=== PATIENT | female | born 1990 | race Caucasian/White ===

== ENCOUNTER 2017-04-12 18:49 | Emergency (ER) | payer OTHER ==
[~2017-04-12] VITALS: Ht 165.1 cm; Wt 86.2 kg
[~2017-04-12 18:49] MED LIST: NASONEX17 GM NASB
--- NOTE | 2017-04-12 20:55 | ED HEADACHE COMPLAINT ---
History of Present Illness General Chief Complaint: Headache Stated Complaint: BIRCH Source: patient Exam Limitations: no limitations Vital Signs & Intake/Output Vital Signs & Intake/Output Vital Signs Date Time Temp Pulse Resp B/P B/P Pulse O2 O2 Flow FiO2 Mean Ox Delivery Rate 04/13 0007 92/66 04/12 2349 80 88/56 04/12 2332 98.1 82 20 88/56 97 04/12 2103 98 118/70 04/12 1854 96.8 82 15 126/84 100 Room Air Room Air ED Intake and Output 04/13 0000 04/12 1200 Intake Total 0 Output Total Balance 0 Intake, Oral 0 Patient 190 lb Weight Weight Reported by Patient Measurement Method Allergies Coded Allergies: No Known Allergies (04/12/17) Reconcile Medications Butalb/Acetaminophen/Caffeine (Esgic Capsule) 50 MG-325 MG-40 MG CAPSULE 1 CAP PO Q6H PRN HEADACHE Ciprofloxacin HCl (Cipro) 500 MG TABLET 1 TAB PO BID UTI Metoclopramide HCl (Reglan) 10 MG TABLET 1 TAB PO 4 TIMES/DAY PRN NAUSEA/ HEADACHE 30 minutes before meals and bedtime Mometasone Furoate (Nasonex) 50 MCG SPRAY.PUMP 2 SPRAY NASB DAILY sinuses Triage Note: PT TO ED FOR C/C OF HEADACHE THAT STARTED 2 DAYS AGO. PT TOOK MOTRIN WITHOUT RELIEF TODAY. +BLURRY VISION AND NAUSEA WITHOUT VOMITING. ALL NEUROS INTACT IN TRIAGE. Triage Nurses Notes Reviewed? yes Onset: Abrupt Duration: day(s): (3), constant, continues in ED Timing: single episode today Quality/Severity: moderate, pressure Severity Numbers: 7 Head Injury Location: frontal No Modifying Factors: none Associated Symptoms: nausea/vomiting LMP (ages 10-50): unknown : No Patient currently breastfeeds: No HPI: 20 60T Luci no past medical history of cancer elevation or headache. She states that she first noticed pain about 3 days ago. The pain is located in the front of her head and does not radiate. She describes it as pressure 7 out of 10. Onset was gradual. This is not the worst headache of her life. She has no previous history of recurrent headaches. She has been taking ibuprofen 400 mg today without any improvement. She reports associated nausea without vomiting. Additionally patient was discharged was diagnosed with a UTI about 2 months ago and thinks that it never went away. She was treated with an unknown antibiotic that she took once a day. She reports SUPRAPUBIC. Pressure frequency urgency. No fever or back pain. No vaginal discharge. She is photophobic. No rashes head trauma chest pain or shortness of breath. (Manolo Ortega) Past History Travel History Traveled to [place] past 21 day No Medical History Any Pertinent Medical History? 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 No (Manolo Ortega) Review of Systems Review of Systems Constitutional: Reports: no symptoms. Eyes: Reports: no symptoms. Ears, Nose, Throat, Mouth: Reports: no symptoms. Respiratory: Reports: no symptoms. Cardiovascular: Reports: no symptoms. Gastrointestinal/Abdominal: Reports: nausea. Genitourinary: Reports: see HPI, dysuria, frequency, urgency. Musculoskeletal: Reports: no symptoms. Skin: Reports: no symptoms. Neurological/Psychological: Reports: headache. Hematologic/Endocrine: Reports: no symptoms. Endocrine: Reports: no symptoms. Immunologic/Allergic: Reports: no symptoms. All Other Systems: Reviewed and Negative (Manolo Ortega) Physical Exam Physical Exam General Appearance: well developed/nourished, no apparent distress, alert, awake Head: atraumatic, normal appearance Eyes: Bilateral: normal appearance, PERRL, EOMI. Ears, Nose, Throat: normal pharynx, normal ENT inspection, hearing grossly normal Neck: normal inspection, supple, full range of motion Respiratory: normal breath sounds, chest non-tender, no respiratory distress, lungs clear Cardiovascular: regular rate/rhythm Gastrointestinal: normal bowel sounds, soft, non-tender, no organomegaly Back: normal inspection, normal range of motion Extremities: normal inspection, normal capillary refill, normal range of motion, no edema Psychiatric: awake, alert, oriented x 3 Cranial Nerves: normal hearing, normal speech, PERRL Coordination/Gait: normal finger to nose, normal gait Motor/Sensory: no motor/sensory deficits Skin: intact, normal color, warm/dry Core Measures Sepsis Present: No Sepsis Focused Exam Completed? No (Terell PONCE,Manolo) Progress Differential Diagnosis: cluster BIRCH, intracranial Hem., migraine BIRCH, musculoskeletal pain, sinusitis, subarach. Hem., tension BIRCH Plan of Care: Orders Procedure Date/time Status Add-on Test (ER Only) 04/12 2314 Active CULTURE,URINE 04/12 2106 Active URINE 04/12 2099 Complete URINALYSIS 04/12 2099 Complete Laboratory Tests 04/12/172106: Urine Color YEL, Urine Clarity HAZY H, Urine pH 6.5, Ur Specific Julian 1.025, Urine Protein NEG, Urine Ketones NEG, Urine Nitrite NEG, Urine Bilirubin NEG, Urine Urobilinogen 1.0, Ur Leukocyte Esterase TRACE H, Ur Microscopic SEDIMENT EXAMINED, Urine RBC 1-3, Urine WBC 1-3 H, Ur Epithelial Cells FEW, Urine Bacteria PACKD H, Urine Hemoglobin NEG, Urine Glucose NEG, Urine Test NEGATIVE Microbiology 04/12 2106 URINE ROUT: Urine Culture - RECD Patient seen and evaluated. She is neurologically intact. CT scan is negative. She is feeling much better after Benadryl and Reglan and Toradol. Urine is showing signs of infection culture centrally covered with Cipro. Prescription given for ESGIC to use for headaches. Follow-up primary care doctor patient is tolerating fluids. Discussed return precautions she is nontoxic-appearing agrees the plan Diagnostic Imaging: Viewed by Me: CT Scan. Discussed w/RAD: CT Scan. Radiology Impression: PATIENT: EDLFINO THOMAS PRESENT AGE: 26 PATIENT ACCOUNT NO: [id number] : 90 LOCATION: [facility] ORDERING PHYSICIAN: Manolo PONCE SERVICE DATE: 04/12/17 EXAM TYPE: CAT - CT HEAD WO IV CONTRAST EXAMINATION: CT HEAD WITHOUT CONTRAST CLINICAL INFORMATION: Headache. COMPARISON: None. TECHNIQUE: Contiguous helical images of the brain were obtained without IV contrast. Multiplanar reconstructions were performed. DLP: 567 mGy-cm. FINDINGS: There are no pathologic extra-axial fluid collections. The lateral, third, fourth ventricles are nondilated and concordant with the appearance of the sulci. There is no evidence for acute intraparenchymal hemorrhage or infarct. There is neither mass nor mass effect. There is no shift of midline structures. The paranasal sinuses and mastoid air cells are clear. There are no osseous lesions. IMPRESSION: No evidence for acute intracranial injury. DICTATED BY: Rafael Edwards MD DATE/TIME DICTATED:04/12/172302 JOB COST ESTIMATOR:DASHA DATE/TIME TRANSCRIBED:04/12/172302 CONFIDENTIAL, DO NOT COPY WITHOUT APPROPRIATE AUTHORIZATION. (Manolo Ortega) Departure Departure Disposition: HOME OR SELF CARE Condition: Stable Clinical Impression Primary Impression: Headache Qualifiers: Headache type: unspecified Headache chronicity pattern: acute headache Intractability: not intractable Qualified Code: R51 - Headache Secondary Impressions: UTI (urinary tract infection) Qualifiers: Urinary tract infection type: acute cystitis Hematuria presence: without hematuria Qualified Code: N30.00 - Acute cystitis without hematuria Referrals: Mack GALINDO,Colton Poe (PCP/Family) Additional Instructions: Rest and drink any fluids. Reglan for nausea and headache. ESGIC as needed for headache. Take ANTIBIOTICS as directed for the full course. Follow up with YOUr primary care doctor. Monitor symptoms returned any concerns. Departure Forms: Customer Survey General Discharge Information Prescriptions: Current Visit Scripts Ciprofloxacin HCl (Cipro) 1 TAB PO BID #14 TAB Butalb/Acetaminophen/Caffeine (Esgic Capsule) 1 CAP PO Q6H PRN HEADACHE #20 CAP Metoclopramide HCl (Reglan) 1 TAB PO 4 TIMES/DAY PRN NAUSEA/HEADACHE #30 TAB 30 minutes before meals and bedtime (Manolo Ortega) PA/CUSTOM BOW MAKER Co-Sign Statement Statement: ED Attending supervision documentation- [] I saw and evaluated the patient. I have also reviewed all the pertinent lab results and diagnostic results. I agree with the findings and the plan of care as documented in the PA's/CUSTOM BOW MAKER's documentation. [X] I have reviewed the ED Record and agree with the PA's/CUSTOM BOW MAKER's documentation. [] Additions or exceptions (if any) to the PAs/CUSTOM BOW MAKER's note and plan are summarized below: [] (Neftaly GALINDO,Spencer Rojas)
--- NOTE | 2017-04-12 23:08 | CT SCAN REPORT ---
EXAMINATION: CT HEAD WITHOUT CONTRAST CLINICAL INFORMATION: Headache. COMPARISON: None. TECHNIQUE: Contiguous helical images of the brain were obtained without IV contrast. Multiplanar reconstructions were performed. DLP: 567 mGy-cm. FINDINGS: There are no pathologic extra-axial fluid collections. The lateral, third, fourth ventricles are nondilated and concordant with the appearance of the sulci. There is no evidence for acute intraparenchymal hemorrhage or infarct. There is neither mass nor mass effect. There is no shift of midline structures. The paranasal sinuses and mastoid air cells are clear. There are no osseous lesions. IMPRESSION: No evidence for acute intracranial injury.
[2017-04-12] MEDS ORDERED: ESGIC CAPSULE1 EACH PO (23:20)
[2017-04-12] MEDS ORDERED: CIPRO500 M1 PO (23:20)
[2017-04-12] MEDS ORDERED: REGLAN10 M1 PO (23:21)
[2017-04-13 00:07] VITALS: BP 92/66
== END 2017-04-13 00:07 ==
LOC: ERH 18:49
DX: R51 Headache (principal); N39.0 Urinary tract infection, site not specified
CPT/HCPCS: 81001; 81025; 87086; 96372; J1885

== ENCOUNTER 2017-08-10 22:47 | Emergency (ER) | payer OTHER ==
[~2017-08-10] VITALS: Ht 165.1 cm; Wt 85.3 kg
[~2017-08-10 22:47] MED LIST changes: +CIPRO500 M1 PO; +ESGIC CAPSULE1 EACH PO; +REGLAN10 M1 PO
[2017-08-11 00:19] LABS: ABSOLUTE BASOPHIL COUNT 0 /CUMM (0.0-0.2); ABSOLUTE EOSINOPHIL COUNT 0.2 /CUMM (0.0-0.7); ABSOLUTE GRANULOCYTE CT 3.5 /CUMM (1.4-6.5); ABSOLUTE LYMPH COUNT 2.3 /CUMM (1.2-3.4); ABSOLUTE MONOCYTE COUNT 0.5 /CUMM (0.10-0.60); BASOPHIL % 0.3 % (0.0-2.0); EOSINOPHIL % 3.2 % (0-5); GRANULOCYTE % 53.7 % (42.2-75.2); HEMATOCRIT 36.5 % (37-47); MEAN CORPUSCULAR HGB 30.9 PG (27.0-31.0); MEAN CORPUSCULAR HGB CONC 34.4 G/DL (33.0-37.0); MEAN CORPUSCULAR VOLUME 89.7 FL (81.0-99.0); MEAN PLATELET VOLUME 6.9 FL (7.4-10.4); PLATELET COUNT 232 /CUMM (130-400); RBC DISTRIBUTION WIDTH 12.7 % (11.5-14.5); RED BLOOD CELL CT 4.07 /CUMM (4.20-5.40); WHITE BLOOD CELL COUNT 6.6 /CUMM (4.8-10.8)
--- NOTE | 2017-08-11 00:45 | ED GI/GU/ABDOMINAL COMPLAINT ---
History of Present Illness General Chief Complaint: General Adult Stated Complaint: "SHARP STOMACH PAIN" Source: patient Exam Limitations: no limitations Allergies Coded Allergies: No Known Allergies (08/10/17) Reconcile Medications Butalb/Acetaminophen/Caffeine (Esgic Capsule) 50 MG-325 MG-40 MG CAPSULE 1 CAP PO Q6H PRN HEADACHE Ciprofloxacin HCl (Cipro) 500 MG TABLET 1 TAB PO BID UTI Metoclopramide HCl (Reglan) 10 MG TABLET 1 TAB PO 4 TIMES/DAY PRN NAUSEA/ HEADACHE 30 minutes before meals and bedtime Mometasone Furoate (Nasonex) 50 MCG SPRAY.PUMP 2 SPRAY NASB DAILY sinuses Ranitidine HCl (Zantac) 300 MG TABLET 1 TAB PO QPM stomache acid Triage Note: PT TO TRIAGE WITH EPIGASTRIC PAIN STARTING EARLY TODAY. PT DENIES FEVERS. DENIES N/V/D. PT STATES PAIN WRAPS AROUND TO HER BACK. PAIN INCREASES WEHEN SHE LEANS OVER Triage Nurses Notes Reviewed? yes ? N Is pt currently ? No Onset: Abrupt Duration: hour(s):, constant Timing: single episode today Quality/Severity: cramping, moderate Location: epigastric Radiation: no radiation HPI: 27-year-old female comes into the emergency room with cramping epigastric pain has been going on since this morning. Denies any vomiting. Denies any fever chills. Denies any urinary symptoms. Denies any vaginal discharge. She denies any prior abdominal surgeries. She comes in for further evaluation. (Jorge L PONCE,Lupillo) Vital Signs & Intake/Output Vital Signs & Intake/Output Vital Signs Date Time Temp Pulse Resp B/P B/P Pulse O2 O2 Flow FiO2 Mean Ox Delivery Rate 08/11 0215 98.0 84 18 115/66 99 Room Air 08/11 0113 98.0 89 18 109/55 99 Room Air 08/11 0050 100 Room Air 08/10 2255 98.2 103 16 124/81 98 Room Air Room Air ED Intake and Output 08/11 0000 08/10 1200 Intake Total Output Total Balance Patient 188 lb Weight Weight Reported by Patient Measurement Method (Ally GALINDO,Carlos Smith) Past History Travel History Traveled to [place] past 21 day No Medical History Any Pertinent Medical History? 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 No (Lupillo Bosch) Review of Systems Review of Systems Constitutional: Reports: no symptoms. EENTM: Reports: no symptoms. Respiratory: Reports: no symptoms. Cardiovascular: Reports: no symptoms. GI: Reports: see HPI. Genitourinary: Reports: no symptoms. Musculoskeletal: Reports: no symptoms. Skin: Reports: no symptoms. Neurological/Psychological: Reports: no symptoms. Hematologic/Endocrine: Reports: no symptoms. Immunologic/Allergic: Reports: no symptoms. All Other Systems: Reviewed and Negative (Lupillo Bosch) Physical Exam Physical Exam General Appearance: well developed/nourished, alert, mild distress Head: atraumatic Eyes: Bilateral: normal appearance. Ears, Nose, Throat, Mouth: dental injury, moist mucous membrane Neck: normal inspection Respiratory: normal breath sounds, no respiratory distress Cardiovascular: regular rate/rhythm Gastrointestinal: soft, tenderness, EPIGASTRIC Back: normal inspection Extremities: normal range of motion Neurologic/Psych: awake, alert, oriented x 3 (Lupillo Bosch) Core Measures ACS in differential dx? No Sepsis Present: No Sepsis Focused Exam Completed? No (Carlos Canales MD) Progress Differential Diagnosis: diverticulitis, gastritis, ischemic bowel, pancreatitis, peptic ulcer, PUD/GERD, SBO Diagnostic Imaging: Viewed by Me: CT Scan. Discussed w/RAD: CT Scan. Initial ED EKG: none Hand-Off Endorsed To: Carlos Canales MD Endorsed Time: 46 Pending: CT (Lupillo Bosch) Plan of Care: Orders Procedure Date/time Status URINE 08/10 2336 Complete URINALYSIS 08/10 2336 Complete LIPASE 08/10 2336 Complete COMPREHENSIVE METABOLIC PANEL 08/10 2336 Complete CBC WITHOUT DIFFERENTIAL 08/10 2336 Complete AMYLASE 08/10 2336 Complete Laboratory Tests 08/11/17 0010: Urinalysis MOD H, Urine Color YEL, Urine Clarity HAZY H, Urine pH 6.0, Ur Specific [place] 1.025, Urine Protein NEG, Urine Ketones NEG, Urine Nitrite NEG, Urine Bilirubin NEG, Urine Urobilinogen 0.2, Ur Leukocyte Esterase TRACE H, Ur Microscopic SEDIMENT EXAMINED, Urine WBC 1-3 H, Ur Epithelial Cells MOD H, Urine Bacteria MOD H, Urine Hemoglobin NEG, Urine Glucose NEG, Urine Test NEGATIVE 08/10/17 9687: Anion Gap 11, Estimated GFR > 60, BUN/Creatinine Ratio 30.0 H, Glucose 113 H, Calcium 9.3, Total Bilirubin 0.4, AST 12 L, ALT 25, Alkaline Phosphatase 60, Total Protein 6.8, Albumin 4.2, Globulin 2.6, Albumin/Globulin Ratio 1.6, Amylase 45, Lipase 277, CBC w Diff NO MAN DIFF REQ, RBC 4.07 L, MCV 89.7, MCH 30.9, MCHC 34.4, RDW 12.7, MPV 6.9 L, Gran % 53.7, Lymphocytes % 35.4, Monocytes % 7.4, Eosinophils % 3.2, Basophils % 0.3, Absolute Granulocytes 3.5, Absolute Lymphocytes 2.3, Absolute Monocytes 0.5, Absolute Eosinophils 0.2, Absolute Basophils 0 Radiology Impression: PATIENT: DELFINO THOMAS PRESENT AGE: 27 PATIENT ACCOUNT NO: [id number] : 90 LOCATION: [facility] ORDERING PHYSICIAN: Lupillo PONCE SERVICE DATE: 08/10/17 EXAM TYPE: CAT - CT ABD & PELVIS W IV CONTRAST EXAMINATION: CT ABDOMEN AND PELVIS WITH CONTRAST CLINICAL INFORMATION: Epigastric pain. COMPARISON: CT abdomen pelvis February 19, 2013 TECHNIQUE: Multidetector volumetric imaging was performed of the abdomen and pelvis following IV administration of 95 mL of Optiray 320 intravenous contrast. Sagittal and coronal reformatted images were obtained on the technologist's workstation. DLP: 614.78 mGy-cm FINDINGS: LUNG BASES: The visualized lung bases are unremarkable. LIVER, GALLBLADDER, AND BILIARY TREE: The liver is normal in size, shape, and attenuation. No focal hepatic lesion or biliary ductal dilatation is present. The gallbladder is unremarkable with no evidence of radiopaque gallstones, gallbladder wall thickening, or obvious pericholecystic inflammatory changes. PANCREAS: Unremarkable. SPLEEN: Unremarkable. ADRENAL GLANDS: Unremarkable. KIDNEYS AND URETERS: The kidneys are normal in size, shape, and attenuation. No hydronephrosis, hydroureter, or calculi seen. No perinephric stranding. BLADDER: Unremarkable. GASTROINTESTINAL TRACT: Moderate to large-volume of stool throughout the colon. No acute change of the bowel. No bowel obstruction. No bowel wall thickening or edema. The appendix is normal. The small bowel loops are unremarkable. ABDOMINAL WALL: No significant hernia is appreciated. LYMPH NODES: Normal. VASCULAR: Unremarkable. PELVIC VISCERA: Unremarkable. OSSEOUS STRUCTURES: Unremarkable. IMPRESSION: No significant abnormality. DICTATED BY: Colton Roche MD DATE/TIME DICTATED:142 TIRE MANAGER:DASHA DATE/TIME TRANSCRIBED:08/11/17142 CONFIDENTIAL, DO NOT COPY WITHOUT APPROPRIATE AUTHORIZATION. 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 I have updated aferdita on her test results. Fortunately she is pain free at this time. I have asked that she follow up with her primary care physician for reevaluation and possible referral to a GI specialist for peptic ulcer disease or a surgeon for biliary colic. (Ally GALINDO,Carlos Smith) Departure Departure Condition: Stable Referrals: Memo Hemphill DO (PCP/Family) Departure Forms: Customer Survey General Discharge Information (Lupillo Bosch) Departure Disposition: HOME OR SELF CARE Clinical Impression Primary Impression: Nonspecific abdominal pain Additional Instructions: Zantac as prescribed for control of stomach acid. Follow-up with your primary care physician for reevaluation and possible referral to a GI specialist for peptic ulcer disease or for referral to a general surgeon for the possibility of gallbladder surgery. Elliott low-fat diet as discussed. Return if any concerns or sudden worsening. Please note that there might be incidental findings in your evaluation that are unrelated to the current emergency department visit. Please notify your primary care doctor about this emergency department visit in order to obtain and review all of the testing performed so that these incidental findings can be monitored as needed. If you had an x-ray performed, please understand that some fractures may not be seen on the initial set of x-rays. If your symptoms persist you might need a repeat set of x-rays to check for such a fracture. If you had a laceration evaluated, please understand that foreign bodies such as glass or wood may not be visible to the naked eye or on plain x-rays. If the wound becomes red, swollen, increasingly more painful or if there is any drainage from the wound, please have it reevaluated by a physician for the possibility of a retained foreign body. If you're unable to follow up as outlined in the discharge instructions please return to the emergency department. Thank you for choosing the [facility] Emergency Department for your care. It was a pleasure to serve you today. Carlos Canales M.D. [facility] Prescriptions: Current Visit Scripts Ranitidine HCl (Zantac) 1 TAB PO QPM #15 TAB (Ally GALINDO,Carlos Smith)
--- NOTE | 2017-08-11 01:53 | CT SCAN REPORT ---
EXAMINATION: CT ABDOMEN AND PELVIS WITH CONTRAST CLINICAL INFORMATION: Epigastric pain. COMPARISON: CT abdomen pelvis February 19, 2013 TECHNIQUE: Multidetector volumetric imaging was performed of the abdomen and pelvis following IV administration of 95 mL of Optiray 320 intravenous contrast. Sagittal and coronal reformatted images were obtained on the technologist's workstation. DLP: 614.78 mGy-cm FINDINGS: LUNG BASES: The visualized lung bases are unremarkable. LIVER, GALLBLADDER, AND BILIARY TREE: The liver is normal in size, shape, and attenuation. No focal hepatic lesion or biliary ductal dilatation is present. The gallbladder is unremarkable with no evidence of radiopaque gallstones, gallbladder wall thickening, or obvious pericholecystic inflammatory changes. PANCREAS: Unremarkable. SPLEEN: Unremarkable. ADRENAL GLANDS: Unremarkable. KIDNEYS AND URETERS: The kidneys are normal in size, shape, and attenuation. No hydronephrosis, hydroureter, or calculi seen. No perinephric stranding. BLADDER: Unremarkable. GASTROINTESTINAL TRACT: Moderate to large-volume of stool throughout the colon. No acute change of the bowel. No bowel obstruction. No bowel wall thickening or edema. The appendix is normal. The small bowel loops are unremarkable. ABDOMINAL WALL: No significant hernia is appreciated. LYMPH NODES: Normal. VASCULAR: Unremarkable. PELVIC VISCERA: Unremarkable. OSSEOUS STRUCTURES: Unremarkable. IMPRESSION: No significant abnormality.
[2017-08-11] MEDS ORDERED: ZANTAC300 MG PO (02:14)
[2017-08-11 02:15] VITALS: BP 115/66
== END 2017-08-11 02:24 ==
LOC: ERH 22:47
PROVIDERS: Physician Assistant Medical
DX: R10.13 Epigastric pain (principal)
CPT/HCPCS: 74177; 81001; 81025; 96374; 96375; J2405

== ENCOUNTER → 2017-12-15 | Emergency (ER) | payer OTHER ==
[~2017-12-15] VITALS: Ht 165.1 cm; Wt 89.4 kg
[~2017-12-15] MED LIST changes: +IBUPROFEN800 M1 PO; +ZANTAC300 MG PO; +ZOFRAN ODT4 M1 SL
[2017-12-15 19:02] LABS: ABSOLUTE BASOPHIL COUNT 0 /CUMM (0.0-0.2); ABSOLUTE EOSINOPHIL COUNT 0.1 /CUMM (0.0-0.7); ABSOLUTE GRANULOCYTE CT 4.9 /CUMM (1.4-6.5); ABSOLUTE LYMPH COUNT 1.9 /CUMM (1.2-3.4); ABSOLUTE MONOCYTE COUNT 0.5 /CUMM (0.10-0.60); BASOPHIL % 0.2 % (0.0-2.0); EOSINOPHIL % 1.6 % (0-5); GRANULOCYTE % 66.6 % (42.2-75.2); HEMATOCRIT 39.3 % (37-47); MEAN CORPUSCULAR HGB 30.9 PG (27.0-31.0); MEAN CORPUSCULAR HGB CONC 34.3 G/DL (33.0-37.0); MEAN CORPUSCULAR VOLUME 90.3 FL (81.0-99.0); MEAN PLATELET VOLUME 7.6 FL (7.4-10.4); PLATELET COUNT 275 /CUMM (130-400); RBC DISTRIBUTION WIDTH 12.8 % (11.5-14.5); RED BLOOD CELL CT 4.36 /CUMM (4.20-5.40); WHITE BLOOD CELL COUNT 7.4 /CUMM (4.8-10.8)
--- NOTE | 2017-12-15 21:25 | CT SCAN REPORT ---
EXAMINATION: CT ABDOMEN AND PELVIS WITH CONTRAST CLINICAL INFORMATION: Right lower quadrant and right flank pain COMPARISON: 09/10/2017 TECHNIQUE: Multidetector volumetric imaging was performed of the abdomen and pelvis following IV administration of 95 mL of Optiray 320 intravenous contrast. Sagittal and coronal reformatted images were obtained on the technologist's workstation. FINDINGS: LUNG BASES: The visualized lung bases are unremarkable. LIVER, GALLBLADDER, AND BILIARY TREE: The liver is normal in size, shape, and attenuation. No focal hepatic lesion or biliary ductal dilatation is present. The gallbladder is unremarkable with no evidence of radiopaque gallstones, gallbladder wall thickening, or obvious pericholecystic inflammatory changes. PANCREAS: Unremarkable. SPLEEN: Unremarkable. ADRENAL GLANDS: Unremarkable. KIDNEYS AND URETERS: The kidneys are normal in size, shape, and attenuation. No hydronephrosis, hydroureter, or calculi seen. No perinephric stranding. BLADDER: Unremarkable. GASTROINTESTINAL TRACT: The small and large bowel are unremarkable. The appendix is unremarkable. ABDOMINAL WALL: No hernia seen. LYMPH NODES: Normal. VASCULAR: Normal caliber abdominal aorta. PELVIC VISCERA: The uterus and adnexa are unremarkable. OSSEOUS STRUCTURES: Unremarkable. IMPRESSION: Normal appendix. No acute CT findings to explain right-sided abdominal pain.
[2017-12-15 21:58] VITALS: BP 107/62
--- NOTE | 2017-12-15 21:58 | ED GI/GU/ABDOMINAL COMPLAINT ---
History of Present Illness General Chief Complaint: Abdominal Pain/Flank Pain Stated Complaint: "A LOT OF PAIN" Source: patient Exam Limitations: no limitations Vital Signs & Intake/Output Vital Signs & Intake/Output Vital Signs Date Time Temp Pulse Resp B/P B/P Pulse O2 O2 Flow FiO2 Mean Ox Delivery Rate 12/15 2158 98.6 88 18 107/62 99 Room Air 12/15 1739 99.1 93 16 122/77 96 Room Air ED Intake and Output 12/16 0000 12/15 1200 Intake Total Output Total Balance Patient 197 lb Weight Allergies Coded Allergies: No Known Allergies (08/10/17) Reconcile Medications Butalb/Acetaminophen/Caffeine (Esgic Capsule) 50 MG-325 MG-40 MG CAPSULE 1 CAP PO Q6H PRN HEADACHE Ciprofloxacin HCl (Cipro) 500 MG TABLET 1 TAB PO BID UTI Ciprofloxacin HCl (Cipro) 500 MG TABLET 1 TAB PO BID uti Ibuprofen 800 MG TABLET 1 TAB PO TID PRN pain Metoclopramide HCl (Reglan) 10 MG TABLET 1 TAB PO 4 TIMES/DAY PRN NAUSEA/ HEADACHE 30 minutes before meals and bedtime Mometasone Furoate (Nasonex) 50 MCG SPRAY.PUMP 2 SPRAY NASB DAILY sinuses Ondansetron (Zofran Odt) 4 MG TAB.RAPDIS 1 TAB SL TID NAUSEA Ranitidine HCl (Zantac) 300 MG TABLET 1 TAB PO QPM stomache acid Triage Note: 27F SAW OBGYN TODAY, DIAGNOSED WITH UTI AND PUT ON CIPRO AND PYRIDIUM AND TOLD TO COME TO ED IF SYMPTOMS WORSEN. SHE IS HERE NOW BECAUSE SHE HAS RIGHT FLANK PAIN. +DYSURIA WITH HEMATURIA AND INCREASED URGENCY X 2 DAYS Triage Nurses Notes Reviewed? yes LMP (ages 10-50): unknown ? N Is pt currently ? No Onset: Abrupt Duration: day(s): (2-3), constant, continues in ED, getting worse Timing: recent history Quality/Severity: cramping Severity Numbers: 7 Location: right flank Radiation: back Activities at Onset: none Prior Abdominal Problems: none HPI: 27-year-old female history of kidney stones history of UTIs presents for evaluation of right flank pain dysuria frequency urgency and nausea. Patient reports symptoms started 2 or 3 days ago and the persistent. The pain is located in the right flank and radiates to the right lower back. She reports she saw her [employer] doctor today and was diagnosed with UTI she was prescribed Cipro. Patient reports she has not yet take the medicine as her symptoms got worse so she came in for further evaluation. She reports episodes of nausea today without vomiting. No diarrhea. She does note some hematuria no difficulty urinating no fevers no chest pain or shortness of breath. (Manolo Ortega) Past History Travel History Traveled to [place] past 21 day No Medical History Any Pertinent Medical History? see below for history Neurological: NONE EENT: NONE Cardiovascular: NONE Respiratory: NONE Gastrointestinal: H. [employer] Hepatic: NONE, KIDNEY STONE Renal: NONE Musculoskeletal: NONE Psychiatric: NONE Endocrine: NONE Blood Disorders: NONE Cancer(s): NONE SUBSTATION MECHANIC/Reproductive: NONE Surgical History Surgical History: nO ABDOMINAL SURGICAL Psychosocial History What is your primary language Malaysian Tobacco Use: Refused to answer Family History Hx Contributory? No (Manolo Ortega) Review of Systems Review of Systems Constitutional: Reports: no symptoms. EENTM: Reports: no symptoms. Respiratory: Reports: no symptoms. Cardiovascular: Reports: no symptoms. GI: Reports: see HPI, abdominal pain, nausea. Genitourinary: Reports: see HPI, dysuria, frequency, urgency. Musculoskeletal: Reports: no symptoms. Skin: Reports: no symptoms. Neurological/Psychological: Reports: no symptoms. Hematologic/Endocrine: Reports: no symptoms. Immunologic/Allergic: Reports: no symptoms. All Other Systems: Reviewed and Negative (Manolo Ortega) Physical Exam Physical Exam General Appearance: well developed/nourished, no apparent distress, alert, awake Head: atraumatic, normal appearance Eyes: Bilateral: normal appearance, EOMI. Ears, Nose, Throat, Mouth: hearing grossly normal, moist mucous membrane Neck: normal inspection, supple, full range of motion Respiratory: normal breath sounds, chest non-tender, no respiratory distress, lungs clear Cardiovascular: regular rate/rhythm, normal peripheral pulses Peripheral Pulses: 2+ radial (R), 2+ radial (L) Gastrointestinal: normal bowel sounds, soft, no organomegaly, tenderness (RT FLANK) Extremities: normal range of motion, NO CVAT.there is tenderness to palpation of the right lumbar paraspinal muscles Neurologic/Psych: no motor/sensory deficits, awake, alert, oriented x 3, normal gait, normal mood/affect Skin: intact, normal color, warm/dry Core Measures ACS in differential dx? No Sepsis Present: No Sepsis Focused Exam Completed? No (Terell PONCE,Manolo) Progress Differential Diagnosis: appendicitis, biliary colic, cholecystitis, ectopic , endometritis, kidney stone, ovarian cyst, ovarian torsion, peptic ulcer, PUD/GERD, UTI/pyelo Plan of Care: Orders Procedure Date/time Status Add-on Test (ER Only) 12/15 1952 Active Add-on Test (ER Only) 12/15 190 Active LIPASE 12/15 1816 Complete AMYLASE 12/15 1816 Complete CULTURE,URINE 12/15 1754 Active URINE 12/16 1739 Complete URINALYSIS 12/16 1739 Complete LACTIC ACID 12/16 1739 Complete COMPREHENSIVE METABOLIC PANEL 12/16 1739 Complete CBC WITHOUT DIFFERENTIAL 12/16 1739 Complete Laboratory Tests 12/15/172039: Lactic Acid Cancelled 12/15/171816: Anion Gap 11, Estimated GFR > 60, BUN/Creatinine Ratio 34.0 H, Glucose 95, Lactic Acid 0.8, Calcium 9.6, Total Bilirubin 0.5, AST 22, ALT 24, Alkaline Phosphatase 53, Total Protein 7.6, Albumin 4.7, Globulin 2.9, Albumin/Globulin Ratio 1.6, Amylase 45, Lipase 96, CBC w Diff NO MAN DIFF REQ, RBC 4.36, MCV 90.3 , MCH 30.9, MCHC 34.3, RDW 12.8, MPV 7.6, Gran % 66.6, Lymphocytes % 25.2, Monocytes % 6.4, Eosinophils % 1.6, Basophils % 0.2, Absolute Granulocytes 4.9, Absolute Lymphocytes 1.9, Absolute Monocytes 0.5, Absolute Eosinophils 0.1, Absolute Basophils 0 12/15/171754: Urinalysis LIGHT H, Urine Color ORANG H, Urine Clarity HAZY H, Urine pH 5.5, Ur Specific [place] 1.020, Urine Protein 100 H, Urine Ketones NEG, Urine Nitrite POS H, Urine Bilirubin NEG, Urine Urobilinogen >=8.0 H, Ur Leukocyte Esterase LARGE H, Ur Microscopic SEDIMENT EXAMINED, Urine RBC 10-15 H, Urine WBC 25-50 H, Ur Epithelial Cells MOD H, Urine Bacteria RARE H, Urine Mucus RARE, Micro UA Comment MORE INFO: H, Urine Hemoglobin SMALL H, Urine Glucose 250 H, Urine Test NEGATIVE Microbiology 12/15 1754 URINE ROUT: Urine Culture - RECD Patient is here for evaluation of right flank pain that started several days ago associated with urinary symptoms. Patient has a history of kidney stones as well as UTIs. Urine is showing signs of infection or blood work is unremarkable. A CT scan of the abdomen and pelvis is negative for any acute findings. Patient was given her first dose of Cipro here she already has a prescription at home. She was also given a prescription for Zofran. She is tolerating fluids no nausea or vomiting here currently. She appears well. Urine culture was sent discussed return precautions in detail increase fluids patient agrees the plan Initial ED EKG: none (Manolo Ortega) Departure Departure Disposition: HOME OR SELF CARE Condition: Stable Clinical Impression Primary Impression: UTI (urinary tract infection) Qualifiers: Urinary tract infection type: acute cystitis Hematuria presence: without hematuria Qualified Code: N30.00 - Acute cystitis without hematuria Referrals: Memo Hemphill DO (PCP/Family) Additional Instructions: Take her Cipro as directed for the full course. Zofran for nausea Tylenol at appropriate for pain. Make a follow-up with your [employer] doctor for recheck in a few days monitor symptoms return with any concerns. Departure Forms: Customer Survey General Discharge Information Prescriptions: Current Visit Scripts Ondansetron (Zofran Odt) 1 TAB SL TID #10 TAB (Manolo Ortega) PA/COUNSELING CASE MANAGER Co-Sign Statement Statement: ED Attending supervision documentation- [] I saw and evaluated the patient. I have also reviewed all the pertinent lab results and diagnostic results. I agree with the findings and the plan of care as documented in the PA's/COUNSELING CASE MANAGER's documentation. [x] I have reviewed the ED Record and agree with the PA's/COUNSELING CASE MANAGER's documentation. [] Additions or exceptions (if any) to the PAs/COUNSELING CASE MANAGER's note and plan are summarized below: [] (Tin GALINDO,Jeff Benavides)
== END ==
LOC: ERH 17:27
PROVIDERS: Physician Assistant Medical
DX: N39.0 Urinary tract infection, site not specified (principal); K27.9 Peptic ulcer, site unspecified, unspecified as acute or chronic, without hemorrhage or perforation
CPT/HCPCS: 74177; 81001; 81025; 87086; 96374; 96375; J0131; J1885; J2405